=== PATIENT | female | born 1950 | race Caucasian/White ===

== ENCOUNTER 2019-06-16 14:52 | Emergency (ER) | payer MEDICARE ==
[2019-06-16 15:20] VITALS: RESP 18; TEMP 98.2
[2019-06-16] MEDS ORDERED: SODIUM CHLORIDE 0.9% 1,000 ML IV STA (15:33)
[2019-06-16] MEDS ORDERED: LIDOCAINE 5% PATCH TOPICAL STA (15:33)
[2019-06-16] MEDS ORDERED: KETOROLAC 30 MG/ML 1 ML VIAL IVP STA (15:34)
--- NOTE | 2019-06-16 15:40 | ED ---
General Adult HPI - General Chief complaint: Recheck/Abnormal Lab/Rx Stated complaint: hip & knee pain/racing heart Source: patient Mode of arrival: ambulatory Limitations: no limitations - History of Present Illness Initial comments: Dictation was produced using [employer] dictation software. please excuse any grammatical, word or spelling errors. Chief Complaint: 69-year-old female with past medical history of bursitis, rheumatoid arthritis and pneumonia she presents today with right hip pain and right knee pain and palpitations. History of Present Illness: Patient 69-year-old female she has multiple complaints today. Patient states she has sensation of her heart racing. She has right hip pain and right knee pain. Patient is a poor historian but she r eports that she does not feel well. She is not able to verbalize what exactly she is feeling. She denies any fever, chills or night sweats. States that her right hip hurts and she has a history of bursitis she believes that her bursitis is acting up. States that she can't sleep because of this pain she'll turn over and landed her left side and have left hip pain. She also has some knee pain s he believes that her right knee is swollen The ROS documented in this emergency department record has been reviewed and confirmed by me. Those systems with pertinent positive or negative responses have been documented in the HPI. All other systems are other negative and/or noncontributory. PHYSICAL EXAM: General Impression: Alert and oriented x3, not in acute distress HEENT: Normocephalic atraumatic, extra-ocular movements intact, pupils equal and reactive to light bilaterally, mucous membranes moist. Cardiovascular: Heart regular rate and rhythm, S1&S2 audible, no murmurs, rubs or gallops Chest: Tachycardic Abdomen: Bowel sounds present, abdomen soft, non-tender, non-distended, no org anomegaly Musculoskeletal: Pulses present and equal in all extremities, no peripheral edema, point tenderness over the right greater trochanter without any superficial erythema or induration. No appreciable swelling to the right knee. Right hip and right knee were both ranged without any antalgia Motor: no focal deficits noted Neurological: CN II-XII grossly intact, no focal motor or sensory deficits noted, patient ambulatory without significant gait disturbance Skin: Intact with no visualized rashes Psych: Normal affect and mood ED course: 69 y Old female presents with chief complaint of palpitations, right hip pain and right knee pain. Vital signs upon arrival shows heart rate of 117, rest of vital signs within acceptable limits. Patient showing no signs of respiratory distress. She is otherwise well-appearing. Physical examination of the right hip and right knee are both unremarkable. Laboratory evaluation obtained. CBC, metabolic panel, urinalysis is unremarkable. X-rays of the knee hip and chest are unremarkable. Patient given intravenous fluids with improvement of her heart rate. Discussed with patient that her labs and imaging studies are all unremarkable. She is clear for discharge. She told to follow-up with her primary care physician regarding her complaints. She is reassured that his symptoms are not consistent with septic arthritis. EKG interpretation: Ventricular rate 105, sinus tachycardia,. 174, QRS 70, QTC 422. No MT prolongation, no QTC prolongation, no ST or T-wave changes noted. Overall, this EKG is unremarkable - Related Data Allergies Allergy/AdvReac Type Severity Reaction Status Date / Time No Known Allergies Allergy Verified 06/16/19 14:58 Review of Systems ROS Statement: Those systems with pertinent positive or pertinent negative responses have been documented in the HPI. ROS Other: All systems not noted in ROS Statement are negative. Past Medical History Past Medical History: Pneumonia Additional Past Medical History / Comment(s): bursitis History of Any Multi-Drug Resistant Organisms: None Reported Past Surgical History: Tonsillectomy Past Psychological History: Anxiety Smoking Status: Never smoker Past Alcohol Use History: Rare Past Drug Use History: None Reported General Exam Limitations: no limitations Course Vital Signs 06/16/19 06/16/19 06/16/19 14:54 15:17 16:36 Temperature 97.8 F 98.2 F Pulse Rate 117 H 105 H 91 Respiratory 22 18 18 Rate Blood Pressure 141/83 158/89 168/99 O2 Sat by Pulse 97 95 96 Oximetry Medical Decision Making - Lab Data Result diagrams: 06/16/19 15:41 06/16/19 15:41 Lab Results 06/16/19 06/16/19 06/16/19 Range/Units 15:41 15:41 15:41 WBC 9.6 (3.8-10.6) k/uL RBC 5.03 (3.80-5.40) m/uL Hgb 15.1 (11.4-16.0) gm/dL Hct 46.4 H (34.0-46.0) % MCV 92.2 (80.0-100.0) fL MCH 30.0 (25.0-35.0) pg MCHC 32.6 (31.0-37.0) g/dL RDW 12.8 (11.5-15.5) % Plt Count 275 (150-450) k/uL Neutrophils % 72 % Lymphocytes % 19 % Monocytes % 5 % Eosinophils % 2 % Basophils % 0 % Neutrophils # 6.9 (1.3-7.7) k/uL Lymphocytes # 1.9 (1.0-4.8) k/uL Monocytes # 0.5 (0-1.0) k/uL Eosinophils # 0.2 (0-0.7) k/uL Basophils # 0.0 (0-0.2) k/uL Sodium 139 (137-145) mmol/L Potassium 4.2 (3.5-5.1) mmol/L Chloride 106 (98-107) mmol/L Carbon Dioxide 26 (22-30) mmol/L Anion Gap 7 mmol/L BUN 15 (7-17) mg/dL Creatinine 0.59 (0.52-1.04) mg/dL Est GFR (CKD-EPI)AfAm >90 (>60 ml/min/1.73 sqM) Est GFR (CKD-EPI)NonAf >90 (>60 ml/min/1.73 sqM) Glucose 94 (74-99) mg/dL Calcium 10.1 (8.4-10.2) mg/dL Magnesium 2.2 (1.6-2.3) mg/dL Urine Color Light Yellow Urine Appearance Clear (Clear) Urine pH 6.0 (5.0-8.0) Ur Specific [place] 1.006 (1.001-1.035) Urine Protein Negative (Negative) Urine Glucose (UA) Negative (Negative) Urine Ketones Negative (Negative) Urine Blood Negative (Negative) Urine Nitrite Negative (Negative) Urine Bilirubin Negative (Negative) Urine Urobilinogen <2.0 (<2.0) mg/dL Ur Leukocyte Esterase Negative (Negative) Disposition Clinical Impression: Hip pain Disposition: HOME SELF-CARE Condition: Good Instructions (If sedation given, give patient instructions): Hip Pain (ED) Is patient prescribed a controlled substance at d/c from ED?: No Referrals: Venice Felder MD [Primary Care Provider] - 1-2 days Time of Disposition: 16:39
[2019-06-16 15:57] LABS: Basophils % (A) 0 %; Eosinophils # (A) 0.2 k/uL (0-0.7); Eosinophils % (A) 2 %; HCT 46.4 % (34.0-46.0); HGB 15.1 gm/dL (11.4-16.0); Lymphocytes # (A) 1.9 k/uL (1.0-4.8); Lymphocytes % (A) 19 %; MCHC 32.6 g/dL (31.0-37.0); MCV 92.2 fL (80.0-100.0); Mean Platelet Volume 7.7; Monocytes # (A) 0.5 k/uL (0-1.0); Monocytes % (A) 5 %; Neutrophils # (A) 6.9 k/uL (1.3-7.7); Neutrophils % (A) 72 %; Platelet Count 275 k/uL (150-450); RBC 5.03 m/uL (3.80-5.40); RDW 12.8 % (11.5-15.5); WBC 9.6 k/uL (3.8-10.6)
[2019-06-16 16:02] LABS: African American GFR (CKD) >90 (>60 ml/min/1.73 sqM); Anion Gap 7 mmol/L; Blood Urea Nitrogen 15 mg/dL (7-17); Calcium 10.1 mg/dL (8.4-10.2); Carbon Dioxide 26 mmol/L (22-30); Chloride 106 mmol/L (98-107); Glucose 94 mg/dL (74-99); Magnesium 2.2 mg/dL (1.6-2.3); Non-African American GFR(CKD) >90 (>60 ml/min/1.73 sqM); Potassium 4.2 mmol/L (3.5-5.1); Sodium 139 mmol/L (137-145)
[2019-06-16 16:11] LABS: Appearance,Urine Clear (Clear); Bilirubin,Urine Negative (Negative); Blood,Urine Negative (Negative); Color,Urine Light Yellow; Glucose,Urine (UA) Negative (Negative); Ketones,Urine Negative (Negative); Leukocyte Esterase,Urine Negative (Negative); Nitrite,Urine Negative (Negative); Protein,Urine Negative (Negative); Specific Gravity,Urine 1.006 (1.001-1.035); Urobilinogen,Urine <2.0 mg/dL (<2.0)
--- NOTE | 2019-06-16 16:17 | XR ---
Right hip HISTORY: Pain for 4 days 2 views of the right hip Bone mineralization, joint spaces and alignment are maintained. IMPRESSION: No fracture or dislocation. No significant osteoarthropathy.
--- NOTE | 2019-06-16 16:17 | XR ---
EXAMINATION TYPE: XR chest 2V DATE OF EXAM: 06/16/2019 COMPARISON: NONE HISTORY: Palpitations, headache and fever TECHNIQUE: Frontal and lateral views of the chest are obtained. FINDINGS: Patient is rotated. Strand-like densities at the lingula, left lower lobe likely represent s scarring or atelectasis. Aorta is dense. There is overlying artifact. There is no focal air space o pacity, pleural effusion, or pneumothorax seen. The cardiac silhouette size is within normal limits. The osseous structures are intact. IMPRESSION: No acute cardiopulmonary process.
--- NOTE | 2019-06-16 16:18 | XR ---
Right knee HISTORY: Right knee pain 4 views of the right knee Bone mineralization, joint spaces and alignment are maintained. No evident joint effusion. Enthesophy te present at the insertion of the quadriceps tendon. IMPRESSION: No acute abnormality.
[2019-06-16 16:37] VITALS: BP 168/99; PULSE 91
[2019-06-16] MEDS ORDERED: ACET/COD 300 MG/30 MG STARTER PACK 6 TAB BTL PO STA (16:37)
== END 2019-06-16 16:57 | disposition home or self-care (01) ==
LOC: EC 14:52
DX: M25.551 Pain in right hip (principal); R00.0 Tachycardia, unspecified; R00.2 Palpitations; M25.561 Pain in right knee
CPT/HCPCS: 36415; 93005; 80048; 83735; 85025; 81003; 73502; 73564; 71046; 99285; 96374; 96361; J1885